=== PATIENT | female | born 1980 | race Two or more races ===

== ENCOUNTER → 2023-08-19 | Outpatient (CLI) | payer BC ==
[~2023-08-19] MED LIST: CEPH250C PO; IBU600T PO
[2023-08-19 09:03] LABS: Urine Bacteria None Seen /hpf (None Seen)
[2023-08-19 09:14] LABS: Basophils # (auto) 0 10 ^3/uL (0-0.2); Basophils % (auto) 0.4 % (0.0-2.0); Eosinophils # (auto) 0.1 10 ^3/uL (0-0.8); Eosinophils % (auto) 1.2 % (0.0-7.0); Hematocrit 41.2 % (36.0-46.0); Hemoglobin 13.7 g/dL (12.2-16.2); Lymphocytes # (auto) 2.6 10 ^3/uL (0.4-5.4); Lymphocytes % (auto) 26.2 % (10.0-50.0); Mean Corpuscular Hgb Conc. 33.2 g/dL (32.0-36.0); Mean Corpuscular Volume 90.4 fL (80.0-100.0); Monocytes # (auto) 0.6 10 ^3/uL (0-1.3); Monocytes % (auto) 6.3 % (0.0-12.0); Neutrophils # (auto) 6.6 10 ^3/uL (1.6-8.6); Neutrophils % (auto) 65.9 % (37.0-80.0); Red Blood Cells 4.55 10^6/uL (4.0-5.20); Red Cell Distribution Width 13.4 % (11.8-14.3); White Blood Cell 10.1 10^3/uL (4.4-10.8)
[2023-08-19 09:35] LABS: Urine Blood Negative /uL (Negative); Urine Clarity Clear (Clear); Urine Color Light-Yellow (Yellow); Urine Protein, UAD Negative (Negative); Urine Specific Gravity 1.014 (1.001-1.035); Urine Urobilinogen Normal (Negative); Urine WBC 1 /hpf (0 - 5)
[2023-08-19 10:23] LABS: Follicle Stimulating Hormone 14.37 IU/L (SEE BELOW)
[2023-08-19 10:24] LABS: Leuteinizing Hormone 4.3 IU/L
== END | disposition home or self-care (01) ==
LOC: LAB 08:51
PROVIDERS: ATTEND Obstetrics & Gynecology
DX: R10.2 Pelvic and perineal pain (principal)
CPT/HCPCS: 36415; 81001; 82670; 83001; 83002; 84403; 84443; 85025; 87086

== ENCOUNTER 2025-02-14 03:28 | Inpatient (IN) | payer BC ==
[~2025-02-14] VITALS: Ht 154.9 cm; Wt 87.5 kg
--- NOTE | 2025-02-14 04:12 | ED.PDOC ---
History of Present Illness HPI Comments 45 year old female with PMHx HLD, thyroid disease, GERD presents to the ED with a chief complaint of generalized weakness onset 1 week. Patient states she has been experiencing generalized weakness, body aches, chills, sore throat, dizziness for the past week. She states she had a root canal 1 week ago, was prescribed Amoxicillin, has been taking accordingly. For the past day, she noticed bilateral hand swelling, painful when she tries to make a fist. Denies sick contact, recent travel, fever, nausea, vomiting, diarrhea, chest pain, shortness of breath, headache, numbness/tingling, fall, injury, dysuria, hematuria. No other symptoms or modifying factors present at this time. REVIEW OF SYSTEMS: General: generalized weakness. No fever. HEENT: sore throat. no earache, no congestion, no neck pain. Cardiac: No chest pain. No palpitations. Lungs: No shortness of breath, no cough. GI: No nausea, no vomiting, no diarrhea, no constipation, no abdominal pain : No dysuria, frequency, or urgency. No hematuria. Musculoskeletal: generalized body aches Skin: No rash, no itching. Neuro: dizziness. weakness (And as sated in HPI) PHYSICAL EXAM: General: Awake, alert and oriented. No acute distress. Skin: Skin in warm, dry and intact. Appropriate color for ethnicity. HEENT: The head is normocephalic and atraumatic. Conjunctivae are clear without exudates or hemorrhage. Sclera is non-icteric. Eyelids are normal in appearance without swelling or lesions. mild posterior pharyngeal erythema Neck: The neck is supple with normal range of motion. No JVD. Cardiac: Heart rate and rhythm are normal. No murmurs, gallops, or rubs are auscultated. Respiratory: No signs of respiratory distress. Lung sounds are clear in all lobes bilaterally without rales, rhonchi, or wheezes. Abdominal: Abdomen is soft, non-tender without distention, guarding or rigidity. Bowel sounds are present and normoactive in all four quadrants. Extremities: Upper and lower extremities are atraumatic in appearance without deformity or edema. Neurological: The patient is awake, alert and oriented to person, place, and time with normal speech. Speech is clear. There is no facial asymmetry. Psychiatric: Appropriate mood and affect. Good judgement and insight. Chief Complaint: General Weakness Time Seen by MD: 04:00 Primary Care Provider: NONE Reviewed Notes: Medications, Allergies Allergies: Coded Allergies: NO KNOWN ALLERGIES (Unverified , 01/18/14) Home Meds Active Scripts Ibuprofen Micronized (MOTRIN TABLET) 600 Mg Tb, 600 MG PO TID PRN for 5 Days, #15 TAB *Black box warning-NSAIDS can increase risk of ND & hypertension, GI irritation, ulceration, bleed, perferation. Do not use post cardiac surgery. Use short duration/lowest effective dose. Prov:DALY DIAZ MD 04/25/23 Cephalexin (KEFLEX CAPSULE) 250 Mg Cp, 250 MG PO QID for 5 Days, #20 BOTTLE Prov:DALY DIAZ MD 04/25/23 Information Source: Patient, Spouse Mode of Arrival: Ambulatory Severity: Moderate Timing: Weeks Duration: Since onset Prehospital treatment: None Past Medical History PAST MEDICAL HISTORY: GERD, High Lipids, Thyroid Surgical History: Denies all surgeries CLINICAL RESEARCH SPEC History: Uterine Fibroids Family History Family History: No family hx of DM Social History Smoker: Cigarettes, Less Than 1 Pack/Day Alcohol: Occasionally Drugs: Denies Drug Use Lives In: Home Was a procedure done? Was a procedure done?: No X-Ray, Labs, Meds, VS Vital Signs Date Time Temp Pulse Resp B/P (MAP) Pulse Ox O2 Delivery O2 Flow Rate FiO2 02/14/25 03:31 100.1 130 20 116/77 97 100.1 Lab Test 02/14/25 04:22 Range/Units White Blood Count 19.3 H 4.4-10.8 10^3/uL Red Blood Count 4.66 4.0-5.20 10^6/uL Hemoglobin 13.8 12.2-16.2 g/dL Hematocrit 42.0 36.0-46.0 % Mean Corpuscular Volume 90.0 80.0-100.0 fL Mean Corpuscular Hemoglobin 29.6 28.0-32.0 pg Mean Corpuscular Hemoglobin Concent 32.9 32.0-36.0 g/dL Red Cell Distribution Width 13.3 11.8-14.3 % Platelet Count 442 140-450 10^3/uL Mean Platelet Volume 8.3 6.9-10.8 fL Neutrophils (%) (Auto) 86.3 H 37.0-80.0 % Lymphocytes (%) (Auto) 8.4 L 10.0-50.0 % Monocytes (%) (Auto) 4.1 0.0-12.0 % Eosinophils (%) (Auto) 0.8 0.0-7.0 % Basophils (%) (Auto) 0.4 0.0-2.0 % Neutrophils # (Auto) 16.6 H 1.6-8.6 10 ^3/uL Lymphocytes # (Auto) 1.6 0.4-5.4 10 ^3/uL Monocytes # (Auto) 0.8 0-1.3 10 ^3/uL Eosinophils # (Auto) 0.2 0-0.8 10 ^3/uL Basophils # (Auto) 0.1 0-0.2 10 ^3/uL Nucleated Red Blood Cells 0.0 % Sodium Level 139 136-145 mmol/L Potassium Level 3.9 3.5-5.1 mmol/L Chloride Level 102 98-107 mmol/L Carbon Dioxide Level 26 20-31 mmol/L Anion Gap 11 5-15 Blood Urea Nitrogen 9 9-23 mg/dL Creatinine 0.93 0.550-1.02 mg/dL Glomerular Filtration Rate Calc 78 >90 mL/min BUN/Creatinine Ratio 9.7 L 10.0-20.0 Serum Glucose 134 H 74-106 mg/dL Calcium Level 9.6 8.7-10.4 mg/dL Creatine Kinase 117 34-145 U/L Time of 1ST Reevaluation: 04:30 Reevaluation 1ST: Unchanged Patient Education/Counseling: Need For Follow Up Family Education/Counseling: Need For Follow Up SEPSIS Sepsis Screen Date sepsis recognized/suspect: Feb 14, 2025 Time Sepsis recognized/suspect: 339 Recent Procedure: No On Antibiotic Therapy: No Respiratory Rate >20: No Heart Rate >90: No Temp<36 C (96.8 F) or >38.3 C: No SBP <90 or MAP <65 mmHG: No New Acute Mental Status Change: No Is the patient on CPAP, BIPAP,: No Physician Orders Covid19 Antigen Aliza (02/14/25 ) Rapid Influenza A&B (02/14/25 04:08) Rapid Strep Screen - Throat (02/14/25 04:08) Lactic Acid W/ Reflex Order (02/14/25 05:02) Blood Culture (02/14/25 05:02) Ceftriaxone 1gm/50ml (Rocephin) (02/14/25 05:15) Vancomycin 1gm/250ml Kit (02/14/25 05:15) Sodium Chloride 0.9% (02/14/25 05:15) Sodium Chloride 0.9% (02/14/25 05:15) Sodium Chloride 0.9% (02/14/25 05:15) Ketorolac Injection (Toradol Injection) (02/14/25 05:15) Ketorolac Injection (Toradol Injection) (02/14/25 05:15) Vital Signs Date Time Temp Pulse Resp B/P (MAP) Pulse Ox O2 Delivery O2 Flow Rate FiO2 02/14/25 03:31 100.1 130 20 116/77 97 100.1 Laboratory Tests Test 02/14/25 04:22 White Blood Count 19.3 10^3/uL (4.4-10.8) H Departure 1 Departure Time of Disposition: 05:20 Impression: Primary Impression: Suspected sepsis Disposition: 09 ADMITTED INPATIENT Condition: Stable Critical Care Note Critical Care Time?: No Stability Stability form required: No Heart Score Heart Score: Heart Score Response (Comments) Value History N/A 0 EKG N/A 0 Age N/A 0 Risk Factors N/A 0 Troponin N/A 0 Total 0 I personally scribed for CECY JACINTO MD ([email or web address]) on 02/14/25 at 04:12. Electronically submitted by Mariah Farrell ([email or web address]). CECY JACINTO MD Feb 14, 2025 04:12
[2025-02-14] MEDS ORDERED: KETOROLAC TROMETH 30 MG/ML 1ML VIAL IM ONE (04:15)
[2025-02-14 04:43] LABS: Hematocrit 42.0 % (36.0-46.0); Hemoglobin 13.8 g/dL (12.2-16.2); Mean Corpuscular Hemoglobin 29.6 pg (28.0-32.0); Mean Corpuscular Volume 90.0 fL (80.0-100.0); Nucleated Red Blood Cells % 0.0 %
[2025-02-14 04:52] LABS: Chloride 102 mmol/L (98-107); Potassium 3.9 mmol/L (3.5-5.1); Sodium 139 mmol/L (136-145)
[2025-02-14 04:53] LABS: Anion Gap 11 (5-15); Carbon Dioxide 26 mmol/L (20-31)
[2025-02-14 04:54] LABS: Calcium 9.6 mg/dL (8.7-10.4)
[2025-02-14 04:58] LABS: BUN/Creatinine Ratio 9.7 (10.0-20.0); Blood Urea Nitrogen 9 mg/dL (9-23)
[2025-02-14 05:00] LABS: Creatine Kinase IFCC 117 U/L (34-145)
[2025-02-14] MEDS ORDERED: KETOROLAC TROMETH 30 MG/ML 1ML VIAL IV ONE (05:15)
[2025-02-14 05:17] LABS: Glucose 134 mg/dL (74-106)
[2025-02-14] MEDS: SODIUM CHLORIDE 0.9% 1,000 ML IV ONE ×3 (05:28→07:03)
[2025-02-14] MEDS: KETOROLAC TROMETH 30 MG/ML 1ML VIAL IV ONE (05:30)
[2025-02-14] MEDS: ACETAMINOPHEN 500 MG TAB or CAP PO ONE (05:31)
[2025-02-14] MEDS: VANCOMYCIN 1GM/250ML KIT 250 ML IV ONE (06:22)
[2025-02-14 06:31] LABS: Lactic Acid w/Reflex 2.1 mmol/L (0.4-2.0)
--- NOTE | 2025-02-14 06:57 | DVHHP2 ---
History of Present Illness Reason for Visit: Weakness, body aches, chills, sore throat, and dizziness History of Present Illness Ashely Marinelli is a 45-year-old female with past medical history of hysterectomy, hyperlipidemia, hypothyroid disease, and GERD who presents to the ED with weakness, body aches, chills, sore throat, and dizziness x1 week. Patient reports that she had a root canal recently 1 week ago was prescribed amoxicillin and has been taking it, reports that she has 3 pills left she has been taking twice a day. Patient also reports that she has a headache 5/10 pressure-like and constant. She also reports that she has been eating greasy foods. Patient denies any recent trauma or injury, recent sick contacts, recent travels, recent ingestion of spoiled food, chest pain, shortness of breath, lightheadedness, abdominal pain, nausea, vomiting, diarrhea, or urinary symptoms. Cardiovascular: hyperipidemia GI: GERD Endocrine: Hypothyroidism Past Surgical History: Hysterectomy Family History: DM, Other (Brother with diabetes) Smoke: No ALCOHOL: occassional Drugs: None Lives: with Family Domestic Violence: Neg Review of Systems Constitutional: Yes: Chills, Other (Body aches sore throat and dizziness) Allergies: Coded Allergies: NO KNOWN ALLERGIES (Unverified , 01/18/14) Exam Vital Signs Vital Signs Date Time Temp Pulse Resp B/P (MAP) Pulse Ox O2 Delivery O2 Flow Rate FiO2 02/14/25 03:31 100.1 130 20 116/77 97 100.1 General Appearance: Alert, Oriented X3, Cooperative, No acute distress HEENT: Atraumatic, PERRLA, EOMI, Mucous membr. moist/pink Respiratory: Clear to auscultation, Normal air movement Cardiovascular: Normal S1, Normal S2, No murmurs Abdominal: Normal bowel sounds, Soft Extremities: No clubbing, No cyanosis, Normal pulses Neuro: Normal speech, Strength at 5/5 X4 ext, Normal tone, Sensation intact Psych/Mental Status: Mental status NL, Mood NL Labs/Xrays Labs Test 02/14/25 05:32 02/14/25 04:22 Range/Units Lactic Acid Level 2.1 *H 0.4-2.0 mmol/L White Blood Count 19.3 H 4.4-10.8 10^3/uL Red Blood Count 4.66 4.0-5.20 10^6/uL Hemoglobin 13.8 12.2-16.2 g/dL Hematocrit 42.0 36.0-46.0 % Mean Corpuscular Volume 90.0 80.0-100.0 fL Mean Corpuscular Hemoglobin 29.6 28.0-32.0 pg Mean Corpuscular Hemoglobin Concent 32.9 32.0-36.0 g/dL Red Cell Distribution Width 13.3 11.8-14.3 % Platelet Count 442 140-450 10^3/uL Mean Platelet Volume 8.3 6.9-10.8 fL Neutrophils (%) (Auto) 86.3 H 37.0-80.0 % Lymphocytes (%) (Auto) 8.4 L 10.0-50.0 % Monocytes (%) (Auto) 4.1 0.0-12.0 % Eosinophils (%) (Auto) 0.8 0.0-7.0 % Basophils (%) (Auto) 0.4 0.0-2.0 % Neutrophils # (Auto) 16.6 H 1.6-8.6 10 ^3/uL Lymphocytes # (Auto) 1.6 0.4-5.4 10 ^3/uL Monocytes # (Auto) 0.8 0-1.3 10 ^3/uL Eosinophils # (Auto) 0.2 0-0.8 10 ^3/uL Basophils # (Auto) 0.1 0-0.2 10 ^3/uL Nucleated Red Blood Cells 0.0 % Sodium Level 139 136-145 mmol/L Potassium Level 3.9 3.5-5.1 mmol/L Chloride Level 102 98-107 mmol/L Carbon Dioxide Level 26 20-31 mmol/L Anion Gap 11 5-15 Blood Urea Nitrogen 9 9-23 mg/dL Creatinine 0.93 0.550-1.02 mg/dL Glomerular Filtration Rate Calc 78 >90 mL/min BUN/Creatinine Ratio 9.7 L 10.0-20.0 Serum Glucose 134 H 74-106 mg/dL Calcium Level 9.6 8.7-10.4 mg/dL Creatine Kinase 117 34-145 U/L EXAM: CT HEAD WITHOUT CONTRAST INDICATION: dizzy TECHNIQUE: CT of the head without intravenous contrast. Radiation Dose Information: CT Dose: CTDI volume is 54.12 mGy. Dose-length product is 1066.69 mGy*cm The dose indicators for CT are the volume Computed Tomography (CT) Dose Index (CTDIvol) and the Dose Length Product (DLP), and are measured in units of mGy and mGy-cm, respectively. These indicators are not patient dose, but values generated from the CT scanner acquisition factors. The report includes radiation exposure data for exposures received during this examination. COMPARISON: None FINDINGS: There is no evidence of acute intracranial hemorrhage, extra-axial collection, mass effect, midline shift, herniation or hydrocephalus. The ventricles, sulci and cisterns are age appropriate. The horan-white differentiation is intact. The visualized paranasal sinuses and mastoid air cells are clear. The surrounding soft tissues and osseous structures are unremarkable. IMPRESSION: No acute intracranial abnormality. CHEST RADIOGRAPH Indication: flu like symptoms Technique: Single frontal view of the chest was obtained Comparison: None FINDINGS: Lines and Tubes: None Lungs: No focal consolidation. Pleura: No effusion. No pneumothorax. Cardiomediastinal contours: Unremarkable Bones: No acute osseous abnormality. IMPRESSION: No acute cardiopulmonary disease. SEPSIS Sepsis Screen Date sepsis recognized/suspect: Feb 14, 2025 Time Sepsis recognized/suspect: 0340 Recent Procedure: No On Antibiotic Therapy: No Respiratory Rate >20: No Heart Rate >90: No Temp<36 C (96.8 F) or >38.3 C: No SBP <90 or MAP <65 mmHG: No New Acute Mental Status Change: No Is the patient on CPAP, BIPAP,: No Physician Orders Covid19 Antigen Aliza (02/14/25 ) Rapid Influenza A&B (02/14/25 04:08) Rapid Strep Screen - Throat (02/14/25 04:08) Blood Culture (02/14/25 05:02) Sodium Chloride 0.9% (02/14/25 05:15) Vital Signs Date Time Temp Pulse Resp B/P (MAP) Pulse Ox O2 Delivery O2 Flow Rate FiO2 02/14/25 03:31 100.1 130 20 116/77 97 100.1 Laboratory Tests Test 02/14/25 04:22 02/14/25 05:32 White Blood Count 19.3 10^3/uL (4.4-10.8) H Lactic Acid Level 2.1 mmol/L (0.4-2.0) *H Medications Medications Dose Ordered Sig/David Route Start Time Stop Time Status Last Admin Dose Admin Acetaminophen 1,000 mg ONCE ONCE PO 02/14/25 05:15 02/14/25 05:16 DC 02/14/25 05:31 1,000 MG Ceftriaxone Sodium 50 ml @ 100 mls/hr ONCE ONCE IV 02/14/25 05:15 02/14/25 05:44 DC 02/14/25 05:31 100 MLS/HR Ketorolac Tromethamine 15 mg ONCE ONCE IV 02/14/25 05:15 02/14/25 05:22 DC 02/14/25 05:30 15 MG Sodium Chloride 1,000 ml @ 1,000 mls/hr Q1H ONCE IV 02/14/25 05:15 02/14/25 06:14 DC 02/14/25 05:28 1,000 MLS/HR Sodium Chloride 1,000 ml @ 1,000 mls/hr Q1H ONCE IV 02/14/25 05:15 02/14/25 06:14 DC 02/14/25 06:22 1,000 MLS/HR Vancomycin HCl 250 ml @ 250 mls/hr ONCE ONCE IV 02/14/25 05:15 02/14/25 06:14 DC 02/14/25 06:22 250 MLS/HR Assessment/Plan Assessment/Plan Assessment Generalized weakness Intractable headache Lactic acidosis likely sepsis Autonomic imbalance Leukocytosis unclear etiology Pyrexia Alcohol use Obesity History of recent root canal History of hyperlipidemia History of thyroid disease History of GERD History of uterine fibroids History of hysterectomy Plan Admit to med [facility] [place] IV antibiotics-ceftriaxone, ceftriaxone and vancomycin given in ED Antiemetics Pain management NS 3 L given ED Antipyretics Blood culture Lactic Strep CK Flu test COVID test UA Urine culture UDS Chest x-ray CT head Diet Home medications to be recon by nurse DVT prophylaxis-SCDs PUD prophylaxis-PPIs Discussed plan of care with patient and nurse Counseled patient on lifestyle modifications, diet, and exercise Counseled patient on cessation of alcohol use [id number] Preventive counseling healthy eating habits, physical activity, and regular checkups Plan discussed with: Patient Date of Service: Feb 14, 2025 Billing Provider: LEONARDO GARCÍA Common Visit Codes: [id number] INP/OBS CARE (HIGH) Secondary Visit Codes: [id number] COUNSELING IND LEONARDO GARCÍA Feb 14, 2025 06:57
[2025-02-14] MEDS ORDERED: ONDANSETRON HCL 4 MG/2 ML VIAL IV PRN (07:00)
--- NOTE | 2025-02-14 07:32 | DVH ---
EXAM: CT HEAD WITHOUT CONTRAST INDICATION: dizzy TECHNIQUE: CT of the head without intravenous contrast. Radiation Dose Information: CT Dose: CTDI volume is 54.12 mGy. Dose-length product is 1066.69 mGy*cm The dose indicators for CT are the volume Computed Tomography (CT) Dose Index (CTDIvol) and the Dose Length Product (DLP), and are measured in units of mGy and mGy-cm, respectively. These indicators are not patient dose, but values generated from the CT scanner acquisition factors. The report includes radiation exposure data for exposures received during this examination. COMPARISON: None FINDINGS: There is no evidence of acute intracranial hemorrhage, extra-axial collection, mass effect, midline s hift, herniation or hydrocephalus. The ventricles, sulci and cisterns are age appropriate. The horan-white differentiation is intact. The visualized paranasal sinuses and mastoid air cells are clear. The surrounding soft tissues and osseous structures are unremarkable. IMPRESSION: No acute intracranial abnormality.
--- NOTE | 2025-02-14 07:33 | DVH ---
CHEST RADIOGRAPH Indication: flu like symptoms Technique: Single frontal view of the chest was obtained Comparison: None FINDINGS: Lines and Tubes: None Lungs: No focal consolidation. Pleura: No effusion. No pneumothorax. Cardiomediastinal contours: Unremarkable Bones: No acute osseous abnormality. IMPRESSION: No acute cardiopulmonary disease.
[2025-02-14 09:02] VITALS: PULSE 99; RESP 17; O2SAT 99
[2025-02-14 10:04] LABS: COVID19 ANTIGEN SOFIA FIA NEGATIVE (NEGATIVE)
[2025-02-14] MEDS: ACETAMINOPHEN 325 MG TAB PO PRN (10:18)
[2025-02-14] MEDS: PANTOPRAZOLE 40 MG/10 ML VIAL INJ IV SCH (10:18)
[2025-02-14] MEDS ORDERED: MORPHINE SULFATE INJ 2 MG/ml SYRG IV PRN (11:15)
[2025-02-14] MEDS ORDERED: VANCOMYCIN PER PHARMACY 0 MG IV SCH (11:45)
[2025-02-14] MEDS: SODIUM CHLORIDE 0.9% 1,000 ML IV SCH (12:35)
[2025-02-14] MEDS: HYDROcodone-ACET 5/325MG TAB PO PRN (12:48)
[2025-02-14 12:50] VITALS: BP 115/75; PULSE 124; RESP 22; TEMP 102.4; O2SAT 97
[2025-02-14 13:19] VITALS: BP 118/73; PULSE 124; RESP 22; RESP 24; TEMP 102.4; O2SAT 99
[2025-02-14 17:00] VITALS: BP 118/73; PULSE 113; RESP 20; TEMP 98.2; O2SAT 99
[2025-02-14] MEDS: ONDANSETRON HCL 4 MG/2 ML VIAL IV PRN (17:34)
[2025-02-14] MEDS: VANCOMYCIN 1GM/250ML KIT 250 ML IV SCH (17:35)
[2025-02-14] MEDS: ACETAMINOPHEN 500 MG TAB or CAP PO PRN (20:09)
[2025-02-14 21:00] VITALS: BP 114/71; PULSE 107; RESP 15; TEMP 98.9; O2SAT 97
[2025-02-15] VITALS (7 sets, daily range): BP systolic 105–121; BP diastolic 66–77; PULSE 79–105; RESP 15–16; TEMP 97.7–99.1; O2SAT 97–100
[2025-02-15 01:50] LABS: Opiate Scree,Urine Neg (NEGATIVE)
[2025-02-15 01:51] LABS: Urine Protein, UAD Negative (Negative)
[2025-02-15 01:53] LABS: Amphetamine Screen, Urine Neg (NEGATIVE); Barbiturate Scree,Urine Neg (NEGATIVE); Benzodiazephine Screen, Urine Neg (NEGATIVE); Cannabinoid Screen, Urine Neg (NEGATIVE); Cocaine Screen, Urine Neg (NEGATIVE); Phencyclidine Screen, Urine Neg (NEGATIVE)
[2025-02-15 06:12] LABS: Hematocrit 35.6 % (36.0-46.0); Hemoglobin 11.8 g/dL (12.2-16.2); Mean Corpuscular Hemoglobin 30.0 pg (28.0-32.0); Mean Corpuscular Volume 90.2 fL (80.0-100.0); Nucleated Red Blood Cells % 0.0 %
[2025-02-15 06:33] LABS: Alanine Aminotransferase 17 U/L (7-40); Alkaline Phosphatase 84 U/L (46-116); Anion Gap 11 (5-15); BUN/Creatinine Ratio 9.7 (10.0-20.0); Carbon Dioxide 25 mmol/L (20-31); Chloride 106 mmol/L (98-107); Glucose 90 mg/dL (74-106); Potassium 3.6 mmol/L (3.5-5.1); Sodium 142 mmol/L (136-145); Total Protein 6.8 g/dL (5.7-8.2)
[2025-02-15 06:34] LABS: Albumin 4.0 g/dL (3.2-4.8)
[2025-02-15 06:35] LABS: Bilirubin, Total 0.6 mg/dL (0.2-1.0)
[2025-02-15 06:37] LABS: Blood Urea Nitrogen 7 mg/dL (9-23); Calcium 8.6 mg/dL (8.7-10.4)
--- NOTE | 2025-02-15 11:09 | DVHPN2 ---
Subjective Patient reporting fevers, chills, body aches Reviewed: Care Plan, H&P, Labs, Medications Changes from previous H/P or p: No Changes General: Per HPI Objective Vitals Vital Signs Date Time Temp Pulse Resp B/P (MAP) Pulse Ox O2 Delivery O2 Flow Rate FiO2 02/14/25 10:00 100 17 108/75 (86) 99 02/14/25 09:11 Room Air* 0 21 02/14/25 08:00 97.6 97.6 General Appearance: Alert, Oriented X3, Cooperative, No acute distress, m oderate distress HEENT: Atraumatic, PERRLA Lungs: Clear to auscultation, Normal air movement Cardiovascular: Normal S1, Normal S2 Abdomen: Normal bowel sounds, Soft, No tenderness, No hepatospenomegaly Genitourinary: No Apparent Abnormalities Musculoskeletal: Normal sensory function, Normal motor function Neuro: Normal gait, Normal speech Skin: Dry, Intact Psych/Mental Status: Mental status NL, Mood NL Medications Current Medications Medications Dose Ordered Sig/David Route Start Time Stop Time Status Last Admin Dose Admin Ceftriaxone Sodium 50 ml @ 100 mls/hr Q24H IV 02/15/25 06:00 Acetaminophen 650 mg Q6HP PRN PO 02/14/25 07:00 02/14/25 10:18 650 MG Pantoprazole Sodium 40 mg DAILY IV 02/14/25 10:00 02/14/25 10:18 40 MG Sodium Chloride 1,000 ml @ 75 mls/hr [id number] IV 02/14/25 11:15 Acetaminophen/ Hydrocodone Bitart 1 tab Q6HPRN PRN PO 02/14/25 11:15 Acetaminophen 500 mg Q8HP PRN PO 02/14/25 11:15 Ondansetron HCl 4 mg Q6HP PRN IV 02/14/25 11:15 Morphine Sulfate 2 mg Q6HPRN PRN IV 02/14/25 11:15 Vancomycin HCl 0 ml @ 0 mls/hr PER PHARMACY IV 02/14/25 11:45 Laboratory Results Laboratory Tests 02/14/25 04:22 Chemistry Test 02/14/25 04:22 Calcium Level 9.6 mg/dL (8.7-10.4) Urinalysis Test 02/14/25 07:58 Urine Color Pending Urine Clarity Pending Urine pH Pending Urine Specific [place] Pending Urine Protein Pending Urine Ketones Pending Urine Blood Pending Urine Nitrite Pending Urine Bilirubin Pending Urine Urobilinogen Pending Urine Leukocyte Esterase Pending Urine RBC /hpf (0 - 4) Urine Microscopic WBC Pending Urine Squamous Epithelial Cells /hpf (<5) Urine Bacteria /hpf (None Seen) Urine Glucose Pending Labs and/or images reviewed: Labs reviewed by me, Image(s) reviewed by me Assessment/Plan Assessment/Plan Impression: -sepsis -status post oral surgery -reported prediabetes -hypothyroidism -dyslipidemia start IV hydration -obesity Plan: -gould cultures -check TSH, ESR, CRP , hemoglobin A1c, lipid panel -continue broad-spectrum antibiotic with Rocephin, add vancomycin -start IV hydration -pain management -Repeat labs in a.m. Total time spent with patient discussing and formulating plan of care: 35 minutes. This medical document was created using an electronic medical record system with [employer] dictation system. Although this document has been carefully reviewed, there may still be some phonetic and typographical errors. These areas are purely typographical due to imperfections of the software programs, and do not reflect any compromise in the patient's medical care. Plan discussed with: Patient, Other (RN) My Orders Orders - LORETTA SANTANA NP Procedure Category Date Status Time Sodium Chloride 0.9% PHA 02/14/25 In Process 11:15 Hydrocodone-Acet PHA 02/14/25 In Process 5/325mg Tab (Stone 11:15 Acetaminophen Tab Or PHA 02/14/25 In Process Cap (Tylenol Tablet 11:15 Ondansetron Hcl PHA 02/14/25 In Process (Zofran) 11:15 Morphine Sulfate PHA 02/14/25 In Process Injection 11:15 Date of Service: Feb 14, 2025 Billing Provider: LORETTA SANTANA NP Common Visit Codes: [id number] INP/OBS CARE(HIGH) LORETTA SANTANA NP Feb 14, 2025 11:55
--- NOTE | 2025-02-15 14:53 | DVHPN2 ---
Subjective Patient reporting fevers, chills, body aches Reviewed: Care Plan, H&P, Labs, Medications Changes from previous H/P or p: No Changes General: Per HPI Objective Vitals Vital Signs Date Time Temp Pulse Resp B/P (MAP) Pulse Ox O2 Delivery O2 Flow Rate FiO2 02/15/25 09:00 98.0 83 16 105/74 (84) 97 98.0 02/15/25 08:00 Room Air* 0 21 Intake/Output Intake and Output 02/15/25 07:00 Intake Total 1220 ml Balance 1220 ml Intake Oral 720 ml IV Total 500 ml # Voids 4 General Appearance: Alert, Oriented X3, Cooperative, No acute distress, m oderate distress HEENT: Atraumatic, PERRLA Lungs: Clear to auscultation, Normal air movement Cardiovascular: Normal S1, Normal S2 Abdomen: Normal bowel sounds, Soft, No tenderness, No hepatospenomegaly Genitourinary: No Apparent Abnormalities Musculoskeletal: Normal sensory function, Normal motor function Neuro: Normal gait, Normal speech Skin: Dry, Intact Psych/Mental Status: Mental status NL, Mood NL Medications Current Medications Medications Dose Ordered Sig/David Route Start Time Stop Time Status Last Admin Dose Admin Ceftriaxone Sodium 50 ml @ 100 mls/hr Q24H IV 02/15/25 09:00 02/15/25 09:00 100 MLS/HR Acetaminophen 650 mg Q6HP PRN PO 02/14/25 07:00 02/14/25 14:32 650 MG Pantoprazole Sodium 40 mg DAILY IV 02/14/25 10:00 02/15/25 10:23 40 MG Sodium Chloride 1,000 ml @ 75 mls/hr [id number] IV 02/14/25 11:15 02/14/25 12:35 75 MLS/HR Acetaminophen/ Hydrocodone Bitart 1 tab Q6HPRN PRN PO 02/14/25 11:15 02/15/25 10:24 1 TAB Acetaminophen 500 mg Q8HP PRN PO 02/14/25 11:15 02/15/25 05:30 500 MG Ondansetron HCl 4 mg Q6HP PRN IV 02/14/25 11:15 02/14/25 17:34 4 MG Morphine Sulfate 2 mg Q6HPRN PRN IV 02/14/25 11:15 Vancomycin HCl 0 ml @ 0 mls/hr PER PHARMACY IV 02/14/25 11:45 Vancomycin HCl 250 ml @ 250 mls/hr Q12H IV 02/14/25 18:00 02/15/25 05:29 250 MLS/HR Laboratory Results Laboratory Tests 02/15/25 04:47 Chemistry Test 02/15/25 04:47 Albumin 4.0 g/dL (3.2-4.8) Calcium Level 8.6 mg/dL (8.7-10.4) L Total Protein 6.8 g/dL (5.7-8.2) LFT Test 02/15/25 04:47 Alanine Aminotransferase (ALT) 17 U/L (7-40) Alkaline Phosphatase 84 U/L (46-116) Aspartate Amino Transferase (AST) 14 U/L (13-40) Total Bilirubin 0.6 mg/dL (0.2-1.0) Urinalysis Test 02/15/25 01:20 Urine Color Yellow (Yellow) Urine Clarity Clear (Clear) Urine pH 6.0 (5.0-9.0) Urine Specific [place] 1.023 (1.001-1.035) Urine Protein Negative (Negative) Urine Ketones Negative (Negative) Urine Blood Negative /uL (Negative) Urine Nitrite Negative (Negative) Urine Bilirubin Negative (Negative) Urine Urobilinogen Normal mg/dL (Negative) Urine Leukocyte Esterase Negative /uL (Negative) Urine RBC 3 /hpf (0 - 4) Urine Microscopic WBC 1 /HPF (0-5) Urine Squamous Epithelial Cells Few /hpf (<5) Urine Bacteria /hpf (None Seen) Urine Glucose Normal mg/dL (Normal) Microbiology Microbiology Date/Time Source Procedure Growth Status 02/14/25 05:32 Blood Blood Culture - Preliminary NO GROWTH AFTER 24 HOURS OF INCUBATION. Resulted Labs and/or images reviewed: Labs reviewed by me, Image(s) reviewed by me Assessment/Plan Assessment/Plan Impression: -sepsis -status post oral surgery -reported prediabetes -hypothyroidism -dyslipidemia start IV hydration -obesity Plan: Events: Persistent headache, now with neck pain and facial swelling. -maxillofacial CT with contrast. CT of the head -gould cultures -check TSH, ESR, CRP , hemoglobin A1c, lipid panel -continue broad-spectrum antibiotic with Rocephin 2 g, add vancomycin -continue IV fluids -pain management -Repeat labs in a.m. Total time spent with patient discussing and formulating plan of care: 35 minutes. This medical document was created using an electronic medical record system with [employer] dictation system. Although this document has been carefully reviewed, there may still be some phonetic and typographical errors. These areas are purely typographical due to imperfections of the software programs, and do not reflect any compromise in the patient's medical care. Plan discussed with: Patient, Other (RN) My Orders Orders - LORETTA SANTANA NP Procedure Category Date Status Time Maxillofacial With CT 02/15/25 Logged 14:[address] 02/15/25 Logged 14:44 Ceftriaxone Ivpb PHA 02/16/25 Verified Rocephin 10:00 Date of Service: Feb 15, 2025 Billing Provider: LORETTA SANTANA NP Common Visit Codes: [id number] INP/OBS CARE(HIGH) LORETTA SANTANA NP Feb 15, 2025 14:53
[2025-02-15] MEDS: IOHEXOL 300 MG/ML 100ML BOTTLE IJ ONE (15:05)
--- NOTE | 2025-02-15 15:45 | DVH ---
Procedure: CT HEAD WITHOUT CONTRAST Study Date and Requested Time: 02/15/2025 03:08 PM History: Persistent BAEZ Comparison: CT HEAD WITHOUT CONTRAST on DOS: 02/14/25 Dose: CTDI: 54.51 mGy DLP: 1019.85 mGycm Technique: Multiplanar images obtained through the brain without intravenous contrast. Findings: Normal brain volume and formation. No hemorrhages, masses, mass effect, midline shift, herniation or cytotoxic edema following a large v ascular territory. No intra-axial or extra-axial fluid collections. No evidence of hydrocephalus. The basal cisterns are patent. The pituitary gland, sella and parasellar regions are unremarkable. The cerebellar tonsils are in nor mal position. The cerebellum is unremarkable. The orbits and globes are unremarkable. The paranasal sinuses and mastoids are clear. There are no wo rrisome calvarial lesions. Impression: No evidence of acute intracranial abnormality. If symptoms persist, consider MRI for further evaluati on.
--- NOTE | 2025-02-15 16:03 | DVH ---
CT FACE WITH INTRAVENOUS CONTRAST REASON FOR EXAM: Facial swelling.Maxillofacial abscess COMPARISON: None TECHNIQUE: Axial CT images of the face were obtained after intravenous contrast administration. 2-D coronal and sagittal reformatted images were provided. Radiation optimization: All CT scans at this facility use at least one of these dose optimization techniques: Automated exposure control mA and/or kV adjustment per patient size (includes targeted exams where dose is matched to clinical indication ) or iterative reconstruction. CONTRAST ADMINISTERED: 80 mL omnipaque 300, intravenously RADIATION DOSE: CTDI: 67 mGy DLP 1206 mGy-cm FINDINGS: The visualized intracranial structures are within normal limits. The globes appear intact. There is no abnormal thickening of the extra-ocular muscles. There is no retrobulbar hematoma. The re is no intraorbital fluid collection or abscess. The visualized paranasal sinuses and mastoid air c ells are clear. The salivary glands are grossly symmetric and within normal limits. There is no patho logic lymphadenopathy by size criteria. The visualized airway is patent and grossly symmetric. No fac ial abscess is identified. There is no abnormal enhancement identified. IMPRESSION: No facial abscess identified.
[2025-02-15] MEDS: VANCOMYCIN 1GM/250ML KIT 250 ML IV SCH (18:22)
[2025-02-16 01:00] VITALS: BP 121/77; PULSE 79; RESP 16; TEMP 98.1; O2SAT 97
[2025-02-16 05:00] VITALS: BP 120/77; PULSE 65; RESP 16; TEMP 98.2; O2SAT 97
[2025-02-16 13:00] VITALS: BP 134/89; PULSE 75; RESP 16; TEMP 98.4; O2SAT 100
--- NOTE | 2025-02-16 15:19 | DVHPN2 ---
Progress Note Date Seen: Feb 16, 2025 Has the PT tested + for MRSA If YES, has PT been informed?: No Medical Necessity Reason Pt with a Central, PICC or Fol: No Subjective Patient reports: No new complaints, Feels better (Patient right facial swelling improved and pain is improved) Changes from previous H/P or p: Changes (Improvement to right facial pain and swelling) Objective vital signs Vital Sign Date Time Temp Pulse Resp B/P (MAP) Pulse Ox O2 Delivery O2 Flow Rate FiO2 02/16/25 13:00 98.4 75 16 134/89 (104) 100 98.4 02/16/25 08:08 Room Air* 0 21 Total Intake and Output 02/15/25 02/15/25 02/16/25 15:00 23:00 07:00 Intake Total 50 ml 250 ml 540 ml Balance 50 ml 250 ml 540 ml medications Current Medications Medications Dose Ordered Sig/David Route Start Time Stop Time Status Last Admin Dose Admin Acetaminophen 650 mg Q6HP PRN PO 02/14/25 07:00 02/14/25 14:32 650 MG Pantoprazole Sodium 40 mg DAILY IV 02/14/25 10:00 02/16/25 08:32 40 MG Sodium Chloride 1,000 ml @ 75 mls/hr [id number] IV 02/14/25 11:15 02/16/25 03:16 75 MLS/HR Acetaminophen/ Hydrocodone Bitart 1 tab Q6HPRN PRN PO 02/14/25 11:15 02/16/25 01:27 1 TAB Ondansetron HCl 4 mg Q6HP PRN IV 02/14/25 11:15 02/15/25 15:38 4 MG Morphine Sulfate 2 mg Q6HPRN PRN IV 02/14/25 11:15 Vancomycin HCl 0 ml @ 0 mls/hr PER PHARMACY IV 02/14/25 11:45 Ceftriaxone Sodium/Dextrose 50 ml @ 50 mls/hr DAILY IV 02/16/25 10:00 02/16/25 09:56 50 MLS/HR Vancomycin HCl 250 ml @ 250 mls/hr Q8H IV 02/15/25 18:00 02/16/25 10:35 250 MLS/HR Examination: GENERAL:Normal, HEENT:Normal, NECK:Normal, LUNGS:Normal, CVS:Normal, ABDOMEN:Normal, MSK:Normal, SKIN:Normal, NEURO:Normal, Any Other System: (Right facial swelling and reduced. No pain to palpitation. No gross abscess or infection in right at the canal site) laboratory and microbiology Laboratory Tests 02/16/25 04:50 02/15/25 04:47 Test 02/15/25 04:47 Range/Units Serum Glucose 90 74-106 mg/dL Microbiology Date/Time Source Procedure Growth Status 02/15/25 01:20 Voided Urine Urine Culture - Preliminary Resulted 02/14/25 05:32 Blood Blood Culture - Preliminary NO GROWTH AFTER 48 HOURS OF INCUBATION. Resulted Labs and/or images reviewed: Labs reviewed by me, Image(s) reviewed by me Problem List/Assessment/Plan Problem List/Assessment/Plan -sepsis -status post oral surgery -reported prediabetes -hypothyroidism -dyslipidemia start IV hydration -obesity Plan: Events: Persistent headache, now with neck pain and facial swelling. -maxillofacial CT with contrast. CT of the head negative for abscess -gould cultures negative at this time -check TSH, ESR, CRP , hemoglobin A1c, lipid panel -continue broad-spectrum antibiotic with Rocephin 2 g, add vancomycin -continue IV fluids -pain management -if stable by tomorrow plan to discharge with the p.o. antibiotics Total time spent with patient discussing and formulating plan of care: 35 minutes. Plan discussed with: Patient Date of Service: Feb 16, 2025 Billing Provider: MAURICIO MCCLELLAN MD Common Visit Codes: [id number] SAME DATE (HIGH) MAURICIO MCCLELLAN MD Feb 16, 2025 15:19
[2025-02-16 17:00] VITALS: BP 119/79; PULSE 87; RESP 15; TEMP 98; O2SAT 99
[2025-02-16 21:00] VITALS: BP 117/72; PULSE 82; RESP 16; TEMP 98.7; O2SAT 99
[2025-02-17 01:00] VITALS: BP 117/67; PULSE 78; RESP 17; TEMP 98.7; O2SAT 97
[2025-02-17 01:27] LABS: Hematocrit 34.5 % (36.0-46.0); Hemoglobin 11.7 g/dL (12.2-16.2); Mean Corpuscular Hemoglobin 30.4 pg (28.0-32.0); Mean Corpuscular Volume 89.5 fL (80.0-100.0); Nucleated Red Blood Cells % 0.0 %
[2025-02-17 05:00] VITALS: BP 119/73; PULSE 73; RESP 17; TEMP 96.5; O2SAT 98
[2025-02-17 08:44] VITALS: BP 117/74; PULSE 75; RESP 16; TEMP 98.2; O2SAT 98
[2025-02-17 13:00] VITALS: BP 118/72; PULSE 80; RESP 16; TEMP 97.6; O2SAT 99
[2025-02-17] MEDS ORDERED: ACET-1882 PO (14:21)
[2025-02-17] MEDS ORDERED: AUG875T PO (14:21)
--- NOTE | 2025-02-17 14:25 | DVHDS2 ---
Discharge Summary Date of Admission Feb 14, 2025 at 06:49 Date of Discharge: Feb 17, 2025 Admitting Diagnosis sepsis suspect due to dental infection Labs/Diagnostic Data: Laboratory Results Test 02/17/25 01:12 02/16/25 04:50 02/15/25 04:47 02/15/25 01:20 White Blood Count 13.4 10^3/uL (4.4-10.8) Red Blood Count 3.86 10^6/uL (4.0-5.20) Hemoglobin 11.7 g/dL (12.2-16.2) Hematocrit 34.5 % (36.0-46.0) Mean Corpuscular Volume 89.5 fL (80.0-100.0) Mean Corpuscular Hemoglobin 30.4 pg (28.0-32.0) Mean Corpuscular Hemoglobin Concent 34.0 g/dL (32.0-36.0) Red Cell Distribution Width 13.0 % (11.8-14.3) Platelet Count 380 10^3/uL (140-450) Mean Platelet Volume 8.1 fL (6.9-10.8) Neutrophils (%) (Auto) 69.3 % (37.0-80.0) Lymphocytes (%) (Auto) 20.4 % (10.0-50.0) Monocytes (%) (Auto) 6.9 % (0.0-12.0) Eosinophils (%) (Auto) 2.3 % (0.0-7.0) Basophils (%) (Auto) 1.1 % (0.0-2.0) Neutrophils # (Auto) 9.3 10 ^3/uL (1.6-8.6) Lymphocytes # (Auto) 2.7 10 ^3/uL (0.4-5.4) Monocytes # (Auto) 0.9 10 ^3/uL (0-1.3) Eosinophils # (Auto) 0.3 10 ^3/uL (0-0.8) Basophils # (Auto) 0.1 10 ^3/uL (0-0.2) Nucleated Red Blood Cells 0.0 % Creatinine 0.79 mg/dL (0.550-1.02) Glomerular Filtration Rate Calc 95 mL/min (>90) Vancomycin Level Trough 16.6 ug/mL (5-10) Erythrocyte Sedimentation Rate 53 mm/hr (0-20) C-Reactive Protein High Sensitivity 14.14 mg/dL (<1.0) Sodium Level 142 mmol/L (136-145) Potassium Level 3.6 mmol/L (3.5-5.1) Chloride Level 106 mmol/L (98-107) Carbon Dioxide Level 25 mmol/L (20-31) Anion Gap 11 (5-15) Blood Urea Nitrogen 7 mg/dL (9-23) BUN/Creatinine Ratio 9.7 (10.0-20.0) Serum Glucose 90 mg/dL (74-106) Calcium Level 8.6 mg/dL (8.7-10.4) Total Bilirubin 0.6 mg/dL (0.2-1.0) Aspartate Amino Transferase (AST) 14 U/L (13-40) Alanine Aminotransferase (ALT) 17 U/L (7-40) Alkaline Phosphatase 84 U/L (46-116) Total Protein 6.8 g/dL (5.7-8.2) Albumin 4.0 g/dL (3.2-4.8) Urine Color Yellow (Yellow) Urine Clarity Clear (Clear) Urine pH 6.0 (5.0-9.0) Urine Specific [place] 1.023 (1.001-1.035) Urine Protein Negative (Negative) Urine Ketones Negative (Negative) Urine Blood Negative /uL (Negative) Urine Nitrite Negative (Negative) Urine Bilirubin Negative (Negative) Urine Urobilinogen Normal mg/dL (Negative) Urine Leukocyte Esterase Negative /uL (Negative) Urine RBC 3 /hpf (0 - 4) Urine Microscopic WBC 1 /HPF (0-5) Urine Squamous Epithelial Cells Few /hpf (<5) Urine Bacteria /hpf (None Seen) Urine Glucose Normal mg/dL (Normal) Urine Opiates Screen Neg (NEGATIVE) Urine Fentanyl Screen Neg (NEGATIVE) Urine Barbiturates Screen Neg (NEGATIVE) Urine Phencyclidine Screen Neg (NEGATIVE) Urine Amphetamines Screen Neg (NEGATIVE) Urine Benzodiazepines Screen Neg (NEGATIVE) Urine Cocaine Screen Neg (NEGATIVE) Urine Cannabinoids Screen Neg (NEGATIVE) Test 02/14/25 07:58 02/14/25 07:36 02/14/25 04:22 Influenza Type A Antigen Negative (Negative) Influenza Type B Antigen Negative (Negative) SARS-CoV-2 Antigen (Rapid) Negative (NEGATIVE) Lactic Acid Level 1.3 mmol/L (0.4-2.0) Creatine Kinase 117 U/L (34-145) Other Laboratory Tests 02/17/25 01:12 02/15/25 04:47 Brief Hx & Hospital Course: pt is 45 y.o. woman presented to the ED with right facial pain. Pt had recent root canala. Pt admitted for sepsis due to dental infection. Pt started on zosyn. Pain and wbc improved. Patient is stable to be discharged home with the 10 days of amoxicillin and follow up with the PCP and the dentist Condition at Discharge: Stable Final Diagnosis/Problems List Sepsis due to dental infection Discharge Disposition: Home Discharge Instruct/Medications Diet: Regular Activity: No Restrictions, As Tolerated Follow Up/Referral: Follow with the PCP in one week. Recommended to follow up with the dentist to assess root canal Scheduled Amoxicillin & Pot Clavulanate (Augmentin Tablet), 875 MG PO BID Cephalexin (Keflex Capsule), 250 MG PO QID Scheduled PRN Acetaminophen (Acetaminophen), 650 MG PO Q6HP PRN Ibuprofen Micronized (Motrin Tablet), 600 MG PO TID PRN Discharge Statement: "Patient was advised to return to the ER or call 911 if any headaches, dizziness, shortness of breath, chest pain, abdominal pain, bleeding, fevers, or worsening of medical condition. Patient was counseled about treatment plan, medications, possible side effects, patientverbalized understanding. All questions were answered to the best of my ability. This discharge took greater then 30 minutes in planning, reviewing documentation, counseling the patient, and discussing with other team members." ASSESSMENT ASSESSMENT Assessment Sepsis due to dental infection Date of Service: Feb 17, 2025 Billing Provider: MAURICIO MCCLELLAN MD Common Visit Codes: [id number] DISCH DAY >30min MAURICIO MCCLELLAN MD Feb 17, 2025 14:25
[2025-02-17 14:58] VITALS: BP 118/72; PULSE 80; RESP 16; TEMP 36.4
[2025-02-17] MEDS ORDERED: VANCOMYCIN 1.25GM/250ML 250 ML IV SCH (20:00)
== END 2025-02-17 15:29 | disposition home or self-care (01) | DRG 872 ==
LOC: ER 03:28 → OVERFLOW 06:49 → WEST WING 12:55
PROVIDERS: ADMIT Internal Medicine; ATTEND Internal Medicine
DX: A41.9 Sepsis, unspecified organism (principal); E87.20 Acidosis, unspecified; G90.89 Other disorders of autonomic nervous system; E66.9 Obesity, unspecified; E78.5 Hyperlipidemia, unspecified; K04.7 Periapical abscess without sinus; Z20.822 Contact with and (suspected) exposure to COVID-19; K21.9 Gastro-esophageal reflux disease without esophagitis; F17.210 Nicotine dependence, cigarettes, uncomplicated; E03.9 Hypothyroidism, unspecified; R73.03 Prediabetes; Z90.710 Acquired absence of both cervix and uterus; Z83.3 Family history of diabetes mellitus; Z68.34 Body mass index [BMI] 34.0-34.9, adult
CPT/HCPCS: 36415; 70450; 70487; 71045; 80048; 80053; 80202; 80307; 81001; 82550; 82565; 83605; 85025; 85652; 86141; 87040; 87086; 87426; 87804; 96361; 96365; G0378; J1885; J2405; J2470